=== PATIENT | female | born 1955 | race Caucasian/White ===

== ENCOUNTER → 2018-01-04 08:21 | Outpatient (CLI) | payer OTHER, SELFPAY ==
[2018-01-04 10:25] LABS: AST(SGOT) 18 U/L (15-37); Alanine Aminotransfer ALT/SGPT 29 U/L (13-56); Albumin, Serum 3.9 g/dL (3.2-5.0); Alkaline Phosphatase 82 U/L (45-117); Bilirubin, Direct 0.16 mg/dL (0.00-0.30); Cholesterol 222 mg/dL (200); Globulin 3.8 g/dL (2.2-4.2); High Density Lipoprotein 62 mg/dL; Protein, Total 7.7 g/dL (6.4-8.2); Triglycerides 112 mg/dL; Very Low Density Lipoprotein 22 mg/dL (5-40)
== END ==
PROVIDERS: Family Provider Family Medicine; PCP Family Medicine; Visit Provider Family Medicine
DX: E78.5 Hyperlipidemia, unspecified (principal)
CPT/HCPCS: 36415; 80061; 80076

== ENCOUNTER → 2018-06-23 07:03 | Outpatient (CLI) | payer OTHER, SELFPAY ==
[2018-06-23 10:34] LABS: Vitamin D,25 Hydroxy 31.7 ng/mL (29.95-100.01)
[2018-06-23 10:36] LABS: Anion Gap 7 (5-15); BUN 13 mg/dL (7-18); Chloride 104 mmol/L (98-107); Creatinine, Serum 0.81 mg/dL (0.55-1.02); EST Glomerular Filtration Rate 76 mL/min (>60); Est Glom Filt Rate - Afr Amer 92 mL/min (>60); Glucose 81 mg/dL (74-106); Potassium 4.4 mmol/L (3.5-5.1); Sodium Level 139 mmol/L (136-145); Thyroid Stim Hormone (TSH) 2.28 uIU/mL (0.358-3.74)
[2018-06-27 18:09] LABS: AST(SGOT) 17 U/L (15-37); Alanine Aminotransfer ALT/SGPT 23 U/L (13-56); Albumin, Serum 4.1 g/dL (3.2-5.0); Alkaline Phosphatase 75 U/L (45-117); Bilirubin, Direct 0.13 mg/dL (0.00-0.30); Cholesterol 248 mg/dL (200); Globulin 3.5 g/dL (2.2-4.2); High Density Lipoprotein 60 mg/dL; Protein, Total 7.6 g/dL (6.4-8.2); Triglycerides 91 mg/dL; Very Low Density Lipoprotein 18 mg/dL (5-40)
== END ==
PROVIDERS: Family Provider Family Medicine; PCP Family Medicine; Referring Provider Family Medicine; Visit Provider Family Medicine
DX: Z00.00 Encounter for general adult medical examination without abnormal findings (principal); Z13.21 Encounter for screening for nutritional disorder
CPT/HCPCS: 36415; 80048; 80061; 80076; 82306; 84443

== ENCOUNTER 2018-08-04 10:00 | Outpatient (RCR) | payer SELFPAY ==
--- NOTE | 2018-12-25 08:28 | HP.PT.NRP ---
HP - Discharge Summary (1) - Patient Information IDA COLUNGA was seen in my office for initial evaluation on . The following Plan of Care was established for this patient: This patient was last seen in our office . 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 At this point I will be discontinuing this patient from physical therapy. I would be happy to see this patient again in the future if found appropriate by the physician. Thank you! Liliana Norton, UNAT
== END 2018-08-04 19:00 | disposition home or self-care (01) ==
LOC: PT 10:00
PROVIDERS: Family Provider Family Medicine; PCP Family Medicine
DX: R69 Illness, unspecified (principal)

== ENCOUNTER → 2019-07-11 09:04 | Outpatient (CLI) | payer OTHER, SELFPAY ==
[2019-07-11 10:24] LABS: Anion Gap 5 (5-15); BUN 18 mg/dL (7-18); BUN/Creat Ratio 19.3 RATIO (10-20); Calcium,Total 9.6 mg/dL (8.5-10.1); Chloride 103 mmol/L (98-107); Cholesterol 243 mg/dL (200); Creatinine, Serum 0.93 mg/dL (0.55-1.02); EST Glomerular Filtration Rate 64 mL/min (>60); Est Glom Filt Rate - Afr Amer 78 mL/min (>60); Glucose 102 mg/dL (74-106); High Density Lipoprotein 64 mg/dL; Potassium 4.4 mmol/L (3.5-5.1); Sodium Level 138 mmol/L (136-145); Thyroid Stim Hormone (TSH) 2.17 uIU/mL (0.358-3.74); Triglycerides 84 mg/dL; Very Low Density Lipoprotein 17 mg/dL (5-40)
[2019-07-11 10:41] LABS: Vitamin D,25 Hydroxy 35.6 ng/mL (29.95-100.01)
== END ==
PROVIDERS: PCP Family Medicine; Referring Provider Nurse Practitioner Adult Health; Visit Provider Nurse Practitioner Adult Health
DX: I10 Essential (primary) hypertension (principal); E78.5 Hyperlipidemia, unspecified
CPT/HCPCS: 36415; 80048; 80061; 82306; 84443

== ENCOUNTER 2019-07-12 11:30 | Outpatient (RCR) | payer SELFPAY ==
--- NOTE | 2019-10-23 11:36 | HP.PT.NRP ---
IDA COLUNGA was seen in my office for initial evaluation on . The following Plan of Care was established for this patient: This patient was last seen in our office . Pertinent comments regarding their Physical therapy will appear below: Self Pay DN- dc At this point I will be discontinuing this patient from physical therapy. I would be happy to see this patient again in the future if found appropriate by the physician. Thank you! UNA HensleyT
== END 2019-07-12 19:00 | disposition home or self-care (01) ==
LOC: PT 11:30
PROVIDERS: Family Provider Family Medicine; PCP Family Medicine
DX: R69 Illness, unspecified (principal)

== ENCOUNTER → 2020-10-07 07:07 | Outpatient (CLI) | payer OTHER, SELFPAY ==
[2020-10-07 10:30] LABS: Vitamin D,25 Hydroxy 27.7 ng/mL
[2020-10-07 10:40] LABS: Anion Gap 4 (5-15); BUN 17 mg/dL (7-18); BUN/Creat Ratio 21.9 RATIO (10-20); Calcium,Total 9.2 mg/dL (8.5-10.1); Chloride 103 mmol/L (98-107); Cholesterol 272 mg/dL (200); Creatinine, Serum 0.78 mg/dL (0.55-1.02); EST Glomerular Filtration Rate 79 mL/min (>60); Est Glom Filt Rate - Afr Amer 96 mL/min (>60); Glucose 86 mg/dL (74-106); High Density Lipoprotein 71 mg/dL; Sodium Level 138 mmol/L (136-145); Thyroid Stim Hormone (TSH) 2.91 uIU/mL (0.358-3.74); Triglycerides 99 mg/dL; Very Low Density Lipoprotein 20 mg/dL (5-40)
== END ==
PROVIDERS: PCP Family Medicine; Referring Provider Family Medicine; Visit Provider Family Medicine
DX: I10 Essential (primary) hypertension (principal); R63.5 Abnormal weight gain; Z13.21 Encounter for screening for nutritional disorder
CPT/HCPCS: 36415; 80048; 80061; 82306; 84443

== ENCOUNTER → 2021-03-31 07:14 | Outpatient (CLI) | payer OTHER, SELFPAY ==
[2021-03-31 10:15] LABS: AST(SGOT) 14 U/L (15-37); Alanine Aminotransfer ALT/SGPT 21 U/L (13-56); Cholesterol 247 mg/dL (200); High Density Lipoprotein 66 mg/dL; Triglycerides 109 mg/dL; Very Low Density Lipoprotein 22 mg/dL (5-40)
== END ==
PROVIDERS: PCP Family Medicine; Referring Provider Family Medicine; Visit Provider Family Medicine
DX: R79.89 Other specified abnormal findings of blood chemistry (principal)
CPT/HCPCS: 36415; 80061; 84450; 84460

== ENCOUNTER → 2022-06-10 | Outpatient (CLI) | payer MEDICARE, OTHER, SELFPAY ==
[2022-06-10 10:13] LABS: Absolute Lymphocyte Count 2.59 X10^3/uL (0.83-4.51); Absolute Neutrophil Count 4.1 X10^3/uL (2.0-7.7); Basophil# 0.05 X10^3/uL; Basophil% 0.7 % (0-1); Eosinophils% 1.3 % (0-5); Hematocrit 44.3 % (37-47); Hemoglobin 14.8 g/dL (12.0-15.0); Lymphocyte # 2.59 X10^3/ul (0.83-4.51); Lymphocyte % 34.9 % (19-41); Mean Corp Hgb Conc 33.4 g/dL (32-36); Mean Corpuscular Volume 89.9 fL (81-99); Mean Platelet Vol. 11.5 fl (6.2-12.0); Monocyte% 8.1 % (0-10); NRBC Flagged by Analyzer 0 % (0-5); Neutrophil # 4.07 X10^3/uL (2.7-7.7); Neutrophil % 54.7 % (47-70); Platelet Count 186 K/mm3 (150-450); RBC Distribution Width CV 12.7 % (11.6-14.6); RBC Distribution Width SD 41.5 fl (35.1-43.9); Red Blood Count 4.93 M/mm3 (4.2-5.4); White Blood Count 7.4 K/mm3 (4.4-11.0)
[2022-06-10 10:38] LABS: Anion Gap 5 (5-15); BUN 11 mg/dL (7-18); BUN/Creat Ratio 13.6 RATIO (10-20); Calcium,Total 9.3 mg/dL (8.5-10.1); Chloride 105 mmol/L (98-107); Cholesterol 284 mg/dL (200); Creatinine, Serum 0.81 mg/dL (0.55-1.02); EST Glomerular Filtration Rate 76 mL/min (>60); Est Glom Filt Rate - Afr Amer 91 mL/min (>60); Glucose 104 mg/dL (74-106); High Density Lipoprotein 67 mg/dL; Potassium 4.2 mmol/L (3.5-5.1); Sodium Level 139 mmol/L (136-145); Thyroid Stim Hormone (TSH) 1.93 uIU/mL (0.358-3.74); Triglycerides 153 mg/dL; Very Low Density Lipoprotein 31 mg/dL (5-40)
== END | disposition home or self-care (01) ==
PROVIDERS: PCP Family Medicine; Referring Provider Family Medicine; Visit Provider Family Medicine
DX: I10 Essential (primary) hypertension (principal); R63.5 Abnormal weight gain; R79.89 Other specified abnormal findings of blood chemistry
CPT/HCPCS: 36415; 80048; 80061; 82306; 84443; 85025

== ENCOUNTER 2024-01-10 16:05 | Outpatient (CLI) | payer MEDICARE, OTHER, SELFPAY ==
[2024-01-10 17:59] LABS: Vitamin D,25 Hydroxy 47.8 ng/mL
[2024-01-10 18:07] LABS: Anion Gap 9 (5-15); BUN 16 mg/dL (7-18); BUN/Creat Ratio 21.1 RATIO (10-20); Calcium,Total 9.6 mg/dL (8.5-10.1); Chloride 103 mmol/L (98-107); Cholesterol 271 mg/dL (200); Creatinine, Serum 0.76 mg/dL (0.55-1.02); EST Glomerular Filtration Rate 81 mL/min (>60); Est Glom Filt Rate - Afr Amer 97 mL/min (>60); Glucose 96 mg/dL (74-106); High Density Lipoprotein 64 mg/dL; Potassium 4.1 mmol/L (3.5-5.1); Sodium Level 137 mmol/L (136-145); Triglycerides 104 mg/dL; Very Low Density Lipoprotein 21 mg/dL (5-40)
== END 2024-01-10 23:59 | disposition home or self-care (01) ==
LOC: MTLAB 16:06
PROVIDERS: PCP Family Medicine; Referring Provider Family Medicine; Visit Provider Family Medicine
DX: I10 Essential (primary) hypertension (principal); E78.5 Hyperlipidemia, unspecified; R79.89 Other specified abnormal findings of blood chemistry; E55.9 Vitamin D deficiency, unspecified
CPT/HCPCS: 36415; 80048; 80061; 82306

== ENCOUNTER → 2025-01-15 | Outpatient (CLI) | payer MEDICARE, OTHER, SELFPAY ==
[2025-01-15 15:59] LABS: AST(SGOT) 19 U/L (<=31); Alanine Aminotransfer ALT/SGPT 17 U/L (<=34); Albumin, Serum 4.6 g/dL (3.4-4.8); Alkaline Phosphatase 81 U/L (35-104); Anion Gap 12 (5-15); BUN 14 mg/dL (4-19); BUN/Creat Ratio 17.8 RATIO (10-20); Calcium,Total 10.1 mg/dL (7.6-11.0); Carbon Dioxide 25.7 mmol/L (21.0-32.0); Chloride 102 mmol/L (98-108); Cholesterol 263 mg/dL (<=200); Globulin 3.3 g/dL (2.2-4.2); Glucose 99 mg/dL (70-99); Low Density Lipoprotein Calc. 164 mg/dL; Potassium 4.4 mmol/L (3.3-5.1); Triglycerides 104 mg/dL; Very Low Density Lipoprotein 21 mg/dL (5-40); cholesterol:hdl ratio screen 3.35
[2025-01-15 16:11] LABS: Hematocrit 46.4 % (37-47); Hemoglobin 15.0 g/dL (12.0-15.0); Immature Granulocytes Count 0.090 X10^3/uL (0.0-0.0); Mean Corp Hgb Conc 32.3 g/dL (32-36); Mean Corpuscular Volume 89.4 fL (81-99); Mean Platelet Vol. 11.8 fl (6.2-12.0); NRBC Flagged by Analyzer 0 % (0-5); Platelet Count 202 K/mm3 (150-450); RBC Distribution Width CV 13.0 % (11.6-14.6); RBC Distribution Width SD 42.5 fl (35.1-43.9); Red Blood Count 5.19 M/mm3 (4.2-5.4); White Blood Count 8.8 K/mm3 (4.4-11.0)
--- OUTSIDE RECORDS SUMMARY | 2025-01-15 18:54 | XMS RPT_ITS | CCD ---
Author Organization [facility] Care Team Providers Care Train Announcer Name Role Phone JOLLIFF, CLAUDINE S Primary Care Unavailable JOLLIFF, CLAUDINE S Primary Care Unavailable MAME DO-FACOG, DAIANA Worthington Attending Unavail able JOLLIFF, CLAUDINE S Primary Care Unavailable Jolliff, Claudine Ольга Primary Care Provider [phone] Jolliff, Claudine S Referring Unavailable Jolliff, Claudine S Attending Unavailable Jolliff, Claudine S Primary Care Unavailable Jolliff, Claudine Ольга Primary Care Provider [phone] JOLLIFF, CLAUDINE S Primary Care Unavailable JOLLIFF, CLAUDINE S Primary Care Unavailable MAME DO-FACOG, DAIANA Worthington Attending Unavail able MAME DO-FACOGDAIANA Attending Unavail able JOLLIFF, CLAUDINE S Primary Care Unavailable JOLLIFF, CLAUDINE S Primary Care Unavailable JOLLIFF, CLAUDINE S Primary Care Unavailable JOLLIFF, CLAUDINE ОЛЬГА Primary Care Unavailable PROVIDER, UNKNOWN Referring Unavailable Problems Problem Classification Problem Date Documented Da te Episodic/Chronic Essential hypertension (1 source) Essential (primary) hypertension; Translations: [Essential (primary) hypertension] Onset: 02-23-2024 Chronic Other screening for suspected conditions (not mental disorders or infectious disease) (1 source) Encounter for screening mammogram for malignant neoplasm of breast; Translations: [Encounter for screening mammogram for malignant neoplasm of breast] Onset: 06-29-2024 Episodic Results Test Name Value Interpretation Reference Range Facil ity WILLIAM SCREENING W TOMOon 06-29 WILLIAM SCREENING W ROBERT * * *Final Report* * * DATE OF EXAM: Jun 29 2024 9:42AM ESPINOZA 0582 - WILLIAM SCREENING W ROBERT / PROCEDURE REASON: Z12.31 SCREENING MAMMOGRAM * * * * Physician Interpretation * * * * [address] [address] #[id number] - WILLIAM SCREENING W ROBERT HISTORY: Patient is 69 years old and is seen for screening. No current complaints. Patient states no personal history of breast cancer. Patient states no personal history of other cancers. COMPARISON STUDIES: The present examination has been compared to prior imaging studies dated 04/19/2017 (mammogram), 06/23/2018 (mammogram), 10/31/2019 (mammogram), 04/22/2021 (mammogram) and 10/22/2022 (mammogram). MAMMOGRAM TECHNIQUE: The study was acquired using full field digital technology and interpreted from soft copy. Digital Breast Tomosynthesis (DBT) images were obtained and used to assist in the interpretation of this examination. MAMMOGRAM FINDINGS: The breasts are heterogeneously dense, which may obscure small masses. There are stable post-operative changes in the left breast. No suspicious masses, calcifications or other abnormalities are seen in either breast. There has been no significant interval change. IMPRESSION: Routine screening mammogram is recommended. Annual mammogram will be due in 1 year. BI-RADS Category 2: Benign RISK: Based on the Tyrer-Cuzick (TC) risk assessment model, this patient has a 4.9% lifetime risk of developing breast cancer, meaning they are at average risk for developing breast cancer. However, this is only an estimate based on available history provided on the patient's questionnaire. We encourage all patients to talk with their providers about these results, further recommendations for managing breast health, and appropriate supplemental screening options if the patient has dense breast tissue. Interpreting Radiologist: Jose Armando Boudreaux M.D. Electronically signed on: 07/01/2024 Improvement Intern: NELSY Turnerribe Date/Time: Jun 29 2024 9:26A Dictated by : JOSE ARMANDO BOUDREAUX MD This examination was interpreted and the report reviewed and electronically signed by: JOSE ARMANDO BOUDREAUX MD on Jul 01 2024 3:30PM EST [id number] N [facility] Phone Msgochristie 05-25-2024 Phone Msg - From: Rebecca Farr MA ([facility]) To: Rebecca Farr MA; Sent: 05/25/2024 09:34:35 EST Subject: FW: Daiana MyersDO tona --- [facility] SHUTTLE FINAL INSPECTOR: Appointment Cancellation Request Actions: Message Caller Name: BRIANNA COLUNGA; Caller Number: H From: BRIANNA COLUNGA To: Daiana Vilchis DO --- Women?[facility] SHUTTLE FINAL INSPECTOR ([facility]) Sent: 05/24/2024 05:26 p.m. EST Subject: Appointment Cancellation Request Thank you for your message. It has been successfully sent to the appropriate care team. The following patient is requesting an appointment to be cancelled. Patient Name: BRIANNA COLUNGA Patient : 1955 Contact Patient by: Secure Message Provider: Daiana Vilchis DO Appointment Date: 05/29/2024 11:30 a.m. EST Reason for Cancellation: I messaged with Dr. Vilchis around the time this appointment was made, and no longer feel that I need to be seen. Thank you! APPT IS CANCELLED [facility] Phone Msg - From: Rebecca Farr MA ([facility]) To: Rebecca Farr MA; Sent: 05/25/2024 09:33:53 EST Subject: FW: Daiana DO Mame --- [facility] SHUTTLE FINAL INSPECTOR: Appointment Cancellation Request Caller Name: BRIANNA COLUNGA; Caller Number: H From: BRIANNA COLUNGA To: Daiana Vilchis DO --- Women?[facility] SHUTTLE FINAL INSPECTOR ([facility]) Sent: 05/24/2024 05:27 p.m. EST Subject: Appointment Cancellation Request Thank you for your message. It has been successfully sent to the appropriate care team. The following patient is requesting an appointment to be cancelled. Patient Name: BRIANNA COLUNGA Patient : 1955 Contact Patient by: Secure Message Provider: Daiana Vilchis DO Appointment Date: 05/29/2024 11:30 a.m. EST Reason for Cancellation: I messaged with Dr. Vilchis around the time this appointment was made, and no longer feel that I need to be seen. Thank you! APPT IS CANCELLED [facility] Phone Msgon 04-27-2024 Phone Msg - From: Tammie Richardson ([facility]) To: BRIANNA COLUNGA Sent: 04/27/2024 13:50:40 EST Subject: RE: Daiana Vilchis DO --- [facility] SHUTTLE FINAL INSPECTOR: Vaginal dryness Actions: Message Mitchell Reed, Just follow the directions on the packaging for the Replens, and I would recommend applying it in the evening as it can work while you are sleeping and be less waste. if using in the morning you may need a pad as it will run out. each application is good for 3 days. I would not have intercourse on the 1st day of application, every one is different as far as response time for the medication to work. you can wait a week and then see how you do. if you have painful intercourse add the coconut oil to help. From: BRIANNA COLUNGA To: Daiana Vilchis DO --- [facility] SHUTTLE FINAL INSPECTOR ([facility]) Sent: 04/27/2024 10:15 a.m. EST successfully sent to the appropriate care team. At my appointment at the end of January you had recommended Replens and explained how you wanted to me use it. Unfortunately, and I am embarrassed to say, due to traveling, I did not start with it until recently:( The packaging states every 3 days; however, I?m not sure that was how you instructed me to use it in the beginning. Is it more beneficial to apply at night? Also, you talked about coconut oil for lubrication. How long after starting with Replens do you recommend would be comfortable to have sex and not experience any adverse problems. I appreciate your understanding and guidance! [facility] Phone Mustapha 04-24-2024 Phone Msg - From: Chikis Pereira To: DAIANA VIGIL; Sent: 04/24/2024 14:37:53 EST Subject: VAGINAL DRYNESS Caller Name: BRIANNA COLUNGA; Caller Number: H PATIENT CALLED IN HAVING A FEW QUESTIONS ABOUT VAGINAL DRYNESS. SHE WAS SEEN IN 02/08/24 FOR HER ANNUAL AND YOU DISCUSSED THIS WITH HER , SHE ALSO THOUGHT YOU DID A PAP WHEN SHE WAS SEEN I DID LOOK AND TALKED TO LEX AND SHE STATED YOU DIDNT BECAUSE BACK IN 2019 IT WAS NEGATIVE AND SHE JUST WANTED TO DOUBLE CHECK. I DID SCHEDULE HER AN APPT WITH DR VILCHIS ON 05/29/24 TO DISCUSS THIS BUT SHE WAS HOPING TO HEAR FROM YOU SOONER. BEST CONTACT NUMBER IS [phone] THANK YOU RH [facility] Physician Progress No wendy 02-12-2024 [facility] Physician Progress Note BRIANNA COLUNGA :1955 Registration Date:02/08/2024 Assessment/Plan This Visit Diagnosis 1. Well woman exam Z01.419 Ordered: AMB Medicare Screening Pelvic/Breast Exam G0101, 02/08/2024 18:28:00 EDT, Well woman exam / Screening mammogram, encounter for / Vaginal dryness, 1 2. Screening mammogram, encounter for Z12.31 Ordered: AMB Medicare Screening Pelvic/Breast Exam G0101, 02/08/2024 18:28:00 EDT, Well woman exam / Screening mammogram, encounter for / Vaginal dryness, 1 3. Vaginal dryness N89.8 Ordered: AMB Medicare Screening Pelvic/Breast Exam G0101, 02/08/2024 18:28:00 EDT, Well woman exam / Screening mammogram, encounter for / Vaginal dryness, 1 Medication Reconciliation What How Much When Instructions Unchanged albuterol = Proventil, Ventolin (Albuterol (Eqv-ProAir HFA)) Inhalation EVERY SIX HOURS Unchanged montelukast Oral DAILY Chief Complaint Annual, Mammogram-normal 10/22/22- needs order 02/27/20 neg pap and neg hpv 04/22/2021 Osteopenia on Dexa History of Present Illness Annual mammo due normal pap 2019 5 grandchildren- [place]iana and laura due for dexa she said pcp ordered menopause no bleeding pain intercourse- replens discussed lubrication reviewed and moisture discussed inclusion cysts medicare every 2 years Physical Exam Vitals & Measurements BP: 140/80 HT: 165 cm WT: 68 kg BMI: 24.98 Depression Screening Scores Initial Depression Screen Score: 0 (02/08/24 14:25:00) Fall Risk Assessment Is the patient ambulatory (mobile): Yes (02/08/24 14:25:00) Have you had a fall within the past: No (02/08/24 14:25:00) Have you had 2 or more falls in the past: No (02/08/24 14:25:00) Constitutional: Appears appropriate for age, non-toxic, and comfortable. No signs of apparent distress present. Speech is clear and appropriate. Stand comfortably erect. Patient is cooperative. VSS and reviewed Eyes: Full range of extra-ocular motion. Conjunctivae clear. Neck: supple and no thyromegaly Respiratory: Chest expansion is adequate bilaterally. Abdomen: Soft and Non-tender, Non distended Musculoskeletal: Walks with a normal gait. Motor strength is intact Ext: No C/C/E Skin: Warm and dry with no evidence of unusual rashes or suspicious lesions. Neurological: Alert and oriented x 3. Mood is normal. Extremities: No clubbing, Cyanosis or edema NUB CARD TENDER EXAM: Breast exam: normal bilateral breast tissue, no skin changes no masses and no nipple discharge, no LAD Pelvic Exam: Ext Gen: normal Vulva anatomy no rash Perineum: no lesions and intact Vagina: no cystocele or rectocele vaginal mucosa healthy pink Cervix: no CMT, discharge present normal Bladder: non tender on palpation Uterus: normal size and mobile midline, NT adnexa: NT and no masses Pelvic muscles: normal muscle tauntness/support OB History History (3,0,0,3) # 1 Baby 1 Outcome Date: 10/1987 Outcome or Result: Vaginal Gest Age: Fullterm Outcome: Live Sex: Female Wt: 2750 g Hospital: other # 2 Baby 1 Outcome Date: 12/1989 Outcome or Result: Vaginal Gest Age: Fullterm Outcome: Live Sex: Female Wt: 2892 g Hospital: other # 3 Baby 1 Outcome Date: 07/1991 Outcome or Result: Vaginal Gest Age: Fullterm Outcome: Live Sex: Female Wt: 2977 g Hospital: other Problem List/Past Medical History Ongoing Asthma HTN (hypertension) Osteopenia Historical Procedure/Surgical History Bone Density- osteopenia: 04/22/21 Mammogram-normal: 04/22/21 Last pap-neg w/neg HPV: 02/27/20 Colonoscopy-normal: 06/2018 D&C Polypectomy: 09/30/16: DAIANA VIGIL Fibroadenoma: 1989 Medications albuterol = Proventil, Ventolin(Albuterol (Eqv-ProAir HFA)), Inhalation, [id number] montelukast, ORAL, DAILY Allergies Trimox swelling of the tongue shellfish Social History Alcohol Use:Current Frequency:1-2 times per month Sexual Other contraceptive use:PM Substance Abuse - Denies Substance Abuse Tobacco Use:Never (less than 100 in lifetime) Family History Thyroid cancer: Mother. Health Status Family Member(s) Family Member(s) Relationship: Mother, Age: Unknown [facility] Ambulatory Clinical Summaryo n 02-08-2024 Ambulatory Clinical Summary BRIANNA COLUNGA :1955 Registration Date:02/08/2024 Ambulatory Visit Instructions Your Diagnosis Well woman exam Screening mammogram, encounter for Vaginal dryness Your Care Team Attending Physician - DAIANA VIGIL Primary Care Physician - CLAUDINE DAVEY Procedures Performed Mammogram-normal (04/22/2021) Bone Density- osteopenia (04/22/2021) Last pap-neg w/neg HPV (02/27/2020) Colonoscopy-normal (06/2018) D&C Polypectomy (09/30/2016) Fibroadenoma (1989) Discharge Vitals Blood Pressure 140/80 Height 64.96 in (165 cm) Weight 149.94 lb (68 kg) BMI 24.98 Systolic Blood Pressure: 140 mmHg (02/08/24::) Diastolic Blood Pressure: 80 mmHg (02/08/24::) Mean Arterial Pressure: 100 mmHg (02/08/24:) Height/Length Measured: 165 cm (02/08/24::) Weight Measured: 68 kg (02/08/24::) Body Mass Index Measured: 24.98 kg/m2 (02/08/24:) Weight Measured - lbs2: 149 lb (02/08/24::) Height/Length Measured - in2: 64.96 in (02/08/24:) Body Mass Index Measured English2: 24.82 kg/m2 (02/08/24::) BSA: 1.76 m2 (02/08/24::) Ht/Wt Measurement Refused by Patient?2: No (02/08/24:) What to do next Scheduled Follow-Up Appointments No results Medications What How Much When Instructions Unchanged albuterol = Proventil, Ventolin (Albuterol (Eqv-ProAir HFA)) Inhalation EVERY SIX HOURS Unchanged montelukast Oral DAILY Allergies Trimox swelling of the tongue shellfish Problems Ongoing - Any problem that you are currently receiving treatment for. Asthma HTN (hypertension) Osteopenia Common Emergency Awareness Tips IS IT A STROKE? Act FAST and Check for these signs: FACE Does the face look uneven? ARM Does one arm drift down? SPEECH Does their speech sound strange? TIME Call at any sign of stroke Heart Attack Signs Chest discomfort: Most heart attacks involve discomfort in the center of the chest and lasts more than a few minutes, or goes away and comes back. It can feel like uncomfortable pressure, squeezing, fullness or pain. Discomfort in upper body: Symptoms can include pain or discomfort in one or both arms, back, neck, jaw or stomach. Shortness of breath: With or without discomfort. Other signs: Breaking out in a cold sweat, nausea, or lightheaded. Remember, MINUTES DO MATTER. If you experience any of these heart attack warning signs, call 9-1-1 to get immediate medical attention! [facility] Ambulatory Clinical Summary BRIANNA COLUNGA DOB:1955 Registration Date:02/08/2024 Ambulatory Visit Instructions Your Diagnosis Well woman exam Screening mammogram, encounter for Vaginal dryness Your Care Team Attending Physician - DAIANA VIGIL Primary Care Physician - CLAUDINE DAVEY Procedures Performed Mammogram-normal (04/22/2021) Bone Density- osteopenia (04/22/2021) Last pap-neg w/neg HPV (02/27/2020) Colonoscopy-normal (06/2018) D&C Polypectomy (09/30/2016) Fibroadenoma (1989) Discharge Vitals Blood Pressure 140/80 Height 64.96 in (165 cm) Weight 149.94 lb (68 kg) BMI 24.98 Systolic Blood Pressure: 140 mmHg (02/08/24 14:25:00) Diastolic Blood Pressure: 80 mmHg (02/08/24 14:25:00) Mean Arterial Pressure: 100 mmHg (02/08/24 14:25:00) Height/Length Measured: 165 cm (02/08/24 14:25:00) Weight Measured: 68 kg (02/08/24 14:25:00) Body Mass Index Measured: 24.98 kg/m2 (02/08/24 14:25:00) Weight Measured - lbs2: 149 lb (02/08/24 14:25:00) Height/Length Measured - in2: 64.96 in (02/08/24 14:25:00) Body Mass Index Measured English2: 24.82 kg/m2 (02/08/24 14:25:00) BSA: 1.76 m2 (02/08/24 14:25:00) Ht/Wt Measurement Refused by Patient?2: No (02/08/24 14:25:00) What to do next Scheduled Follow-Up Appointments No results Medications What How Much When Instructions Unchanged albuterol = Proventil, Ventolin (Albuterol (Eqv-ProAir HFA)) Inhalation EVERY SIX HOURS Unchanged montelukast Oral DAILY Allergies Trimox swelling of the tongue shellfish Problems Ongoing - Any problem that you are currently receiving treatment for. Asthma HTN (hypertension) Osteopenia Common Emergency Awareness Tips IS IT A STROKE? Act FAST and Check for these signs: FACE Does the face look uneven? ARM Does one arm drift down? SPEECH Does their speech sound strange? TIME Call at any sign of stroke Heart Attack Signs Chest discomfort: Most heart attacks involve discomfort in the center of the chest and lasts more than a few minutes, or goes away and comes back. It can feel like uncomfortable pressure, squeezing, fullness or pain. Discomfort in upper body: Symptoms can include pain or discomfort in one or both arms, back, neck, jaw or stomach. Shortness of breath: With or without discomfort. Other signs: Breaking out in a cold sweat, nausea, or lightheaded. Remember, MINUTES DO MATTER. If you experience any of these heart attack warning signs, call to get immediate medical attention! [facility] Comprehensive Intake - Texto n 02-08-2024 Comprehensive Intake - Text Comprehensive Intake Entered On: 02/08/2024 14:30 EDT Performed On: 02/08/2024 14:25 EDT by Lex Huang MA Summary Chief Complaint : Annual, Mammogram-normal 10/22/22- needs order 02/27/20 neg pap and neg hpv 04/22/2021 Osteopenia on Dexa Lex Huang MA - 02/08/2024 14:30 EDT Bladder Control Issues? : No Urine Leakage? : No Presence or absence of urinary incontinence assessed : Yes CPT-II Medication list doc'd in medical record : Yes Influenza immunization administered or previously received : No Pneumococcal vaccine administered or previously received : No Lex Huang MA - 02/08/2024 14:25 EDT Measurements Weight Measured : 68 kg(Converted to: 149 lb 15 oz, 149.914 lb) Body Mass Index Measured : 24.98 kg/m2 Body Mass Index documented : Yes Weight Measured - lbs : 149 lb(Converted to: 149 lb 0 oz, 68 kg) Body Mass Index Measured Palestinian : 24.82 kg/m2 BSA Palestinian : 1.76 m2 Lex Huang MA 02/08/2024 14:30 EDT Ht/Wt Measurement Refused by Patient? : No Height/Length Measured : 165 cm(Converted to: 5 ft 5 in, 64.96 in) Height/Length Measured - in : 64.96 in(Converted to: 5 ft 5 in, 165 cm) Lex Huang MA 02/08/2024 14:25 EDT Vitals Require BP : Yes Systolic Blood Pressure : 140 mmHg Diastolic Blood Pressure : 80 mmHg Mean Arterial Pressure : 100 mmHg Last Systolic BP : greater than or equal to 140 mmHg Last Diastolic BP : 80-89 mmHg Pain Present : No actual or suspected pain Pain : 0 Pain severity quantified : No pain present Lex Huang MA 02/08/2024 14:34 EDT Infection Screening Travel outside [place] within past 21 days : No Positive COVID test in the last 10 days? : No Exposure to and/or close contact with a person who has a laboratory-confirmed COVID test within the last 48 hours. : No Reina NOELLE Lex 02/08/2024 14:25 EDT Depression Screening Is patient currently : None of the Below Feeling Down, Depressed, Hopeless : Not at all Little Interest - Pleasure in Activities : Not at all Initial Depression Screen Score : 0 Depression Screening Score 0 : No RobeclementinaLex luevano MA 02/08/2024 14:25 EDT Falls Risk Assessment Is the patient ambulatory (mobile) : Yes Have you had 2 or more falls in the past year : No Have you had a fall within the past year that has caused an injury : No Patient screen for fall risk : no falls in last year OR 1 fall with no injury in last year Roberoberto DRAKE Lex 02/08/2024 14:25 EDT [facility] Basic Metabolic Profile (BMP )on 01-10-2024 BUN/CRE 21.1 RATIO High 10-20 [facility] Comment on above: Order Comment: Order Date: 01/10/24 Order Info: [id number] - BMP Order Info: [id number] - LIPID Performed By: #### L 500.4100, L500.2500, L506.1000 #### [facility] [address] [place], [address] CA,Total 9.6 mg/dL Normal 8.5-10.1 [facility] Comment on above: Order Comment: Order Date: 01/10/24 Order Info: 06 - BMP Order Info: [id number] - LIPID Performed By: #### L 500.4100, L500.2500, L506.1000 #### [facility] [address] [place], [address] Chloride [Moles/Vol] 103 mmol/L Normal 98-107 [facility] Comment on above: Order Comment: Order Date: 01/10/24 Order Info: 666-06 - BMP Order Info: [id number] - LIPID Performed By: #### L 500.4100, L500.2500, L506.1000 #### [facility] [address] [place], [address] CO2 [Moles/Vol] 25.0 mmol/L Normal 21.0-32.0 [facility] Comment on above: Order Comment: Order Date: 01/10/24 Order Info: 666-06 - [facility] Order Info: [id number] - LIPID Performed By: #### L 500.4100, L500.2500, L506.1000 #### [facility] [address] [place], [address] Creatinine [Mass/Vol] 0.76 mg/dL Normal 0.55-1.02 [facility] Comment on above: Order Comment: Order Date: 01/10/24 Order Info: 666-06 - BMP Order Info: [id number] - LIPID Result Comment: The validity of the calculated GFR GFRAA in patients over 70 years has not been determined. Clinical correlation is essential. Performed By: #### L 500.4100, L500.2500, L506.1000 #### [facility] [address] [place], [address] EST GFR - AA 97 mL/min Normal >60 [facility] Comment on above: Order Comment: Order Date: 01/10/24 Order Info: 666-06 - BMP Order Info: [id number] - LIPID Result Comment: Afri can Togolese GFR Calc Performed By: #### L 500.4100, L500.2500, L506.1000 #### [facility] [address] [place], [address] GAP 9 Normal 5-15 [facility] Comment on above: Order Comment: Order Date: 01/10/24 Order Info: 06 - [facility] Order Info: [id number] - LIPID Performed By: #### L 500.4100, L500.2500, L506.1000 #### [facility] [address] [place], [address] GFR/1.73 sq M.predicted among non-blacks MDRD (S/P/Bld) [Vol rate/Area] 81 mL/min/{1.73_m2} Normal >60 [facility] Comment on above: Order Comment: Order Date: 01/10/24 Order Info: 666-06 - [facility] Order Info: [id number] - LIPID Result Comment: Non- GFR Calc Performed By: #### L 500.4100, L500.2500, L506.1000 #### [facility] [address] [place], [address] Glucose [Mass/Vol] 96 mg/dL Normal 74-106 [facility] Comment on above: Order Comment: Order Date: 01/10/24 Order Info: 666-06 - [facility] Order Info: [id number] - LIPID Performed By: #### L 500.4100, L500.2500, L506.1000 #### [facility] [address] [place], [address] Potassium [Moles/Vol] 4.1 mmol/L Normal 3.5-5.1 [facility] Comment on above: Order Comment: Order Date: 01/10/24 Order Info: [id number]- - [facility] Order Info: [id number] - LIPID Performed By: #### L 500.4100, L500.2500, L506.1000 #### [facility] [address] [place], [address] Sodium [Moles/Vol] 137 mmol/L Normal 136-145 [facility] Comment on above: Order Comment: Order Date: 01/10/24 Order Info: [id number] - BMP Order Info: [id number] - LIPID Performed By: #### L 500.4100, L500.2500, L506.1000 #### [facility] [address] [place], [address] Urea nitrogen [Mass/Vol] 16 mg/dL Normal 7-18 [facility] Comment on above: Order Comment: Order Date: 01/10/24 Order Info: [id number]- - BMP Order Info: [id number] - LIPID Performed By: #### L 500.4100, L500.2500, L506.1000 #### [facility] [address] [place], [address] Lipid Profileon 01-10-2024 Cholesterol [Mass/Vol] 271 mg/dL High 200 [facility] Comment on above: Order Comment: Order Date: 01/10/24 Order Info: [id number] - BMP Order Info: [id number] - LIPID Result Comment: <200 mg/dL Desirable 200-240 mg/dL Borderline >240 mg/dL High Risk Performed By: #### L 500.4100, L500.2500, L506.1000 #### [facility] [address] [place], [address] Cholesterol in HDL [Mass/Vol] 64 mg/dL Normal [facility] Comment on above: Order Comment: Order Date: 01/10/24 Order Info: [id number] - BMP Order Info: [id number] - LIPID Result Comment: The drugs N-Acetylcysteine and Metamizole may falsely depress this assay. Reference Range HDL <40 mg/dL Low HDL Cholesterol HDL >or= 60 mg/dL High HDL Cholesterol Performed By: #### L 500.4100, L500.2500, L506.1000 #### [facility] [address] [place], [address] Cholesterol in LDL [Mass/Vol] 186 mg/dL High 0-130 [facility] Comment on above: Order Comment: Order Date: 01/10/24 Order Info: [id number] - BMP Order Info: [id number] - LIPID Performed By: #### L 500.4100, L500.2500, L506.1000 #### [facility] [address] [place], [address] Cholesterol in VLDL [Mass/Vol] 21 mg/dL Normal 5-40 [facility] Comment on above: Order Comment: Order Date: 01/10/24 Order Info: [id number] - [facility] Order Info: [id number] - LIPID Performed By: #### L 500.4100, L500.2500, L506.1000 #### [facility] [address] [place], [address] Triglyceride [Mass/Vol] 104 mg/dL Normal [facility] Comment on above: Order Comment: Order Date: 01/10/24 Order Info: [id number] - [facility] Order Info: [id number] - LIPID Result Comment: The drugs N-Acetylcysteine and Metamizole may falsely depress this assay. Serum Triglycerides Reference Interval Normal <150 mg/dL Borderline high 150 - 199 mg/dL High 200 - 499 mg/dL Very High > or = 500 mg/dL Performed By: #### L 500.4100, L500.2500, L506.1000 #### [facility] [address] [place], [address] Protein+Creatinine Ratio,Uri neon 01-10-2024 PROT:CRE RATIO Normal 0-200 [facility] Comment on above: Result Comment: @UTO . PATIENT SAID THEY WOULD TALK TO LEE ABOUT DOING IT THE NEXT APPT Performed By: #### L 501.0900 #### [facility] [address] [place], [address] PROTEIN,UR.RAN. Normal <11.9 [facility] Comment on above: Result Comment: @UTO . PATIENT SAID THEY WOULD TALK TO LEE ABOUT DOING IT THE NEXT APPT Performed By: #### L 501.0900 #### [facility] [address] [place], [address] UR CREAT Normal NO RANGE EST. [facility] Comment on above: Result Comment: @UTO . PATIENT SAID THEY WOULD TALK TO LEE ABOUT DOING IT THE NEXT APPT Performed By: #### L 501.0900 #### [facility] [address], [address] Vitamin D,25 Hydroxyon 01-09 Vitamin D 25-OH 47.8 ng/mL Normal [facility] Comment on above: Order Comment: Order Date: 01/10/24 Order Info: [id number] - VITD25 Result Comment: Devorah min D 25(OH) Status Range Deficiency <20 ng/mL (50nmol/L) Insufficiency 20 - 30 ng/mL (50 - 75 nmol/L) Sufficiency 30 - 100 ng/mL (75 - 250 nmol/L) Toxicity >100 ng/mL (>250 nmol/L) Performed By: #### L 500.4100, L500.2500, L506.1000 #### [facility] [address] [place], [address] Phone Msgon 12-13-2023 Phone Msg - From: Miryam Mortensen To: Lex Huang MA; Sent: 12/13/2023 10:04:54 EDT Subject: MAMMOGRAM cooling pan tender Name: BRIANNA COLUNGA; Caller Number: h She needs a mammogram order sent to [facility]. If you can put it in and I will fax Submitted: Order:MAMM DIGITAL SCRN BILATERAL Details: 12/13/2023, Routine, SCREENING, Ambulatory, Screening mammogram, encounter for Signed by Lex Huang MA 12/13/2023 10:10:00 EDT From: Lex Huang MA To: Miryam Mortensen; Sent: 12/13/2023 10:12:44 EDT Subject: FW: MAMMOGRAM cooling pan tender Name: BRIANNA COLUNGA; Caller Number: H can you fax it to [facility] From: Miryam Mortensen To: Lex Huang MA; Sent: 12/13/2023 10:36:05 EDT Subject: RE: MAMMOGRAM cooling pan tender Name: BRIANNA COLUNGA; Caller Number: h FAXED TO [facility] Absolute lymphocyte counton 06-10-2022 Lymphocytes Auto (Unsp spec) [#/Vol] 2.59 10*3/uL 0.83-4.51 [facility] Work Phone: Basophil percentageon 2021 Basophils/100 WBC (Bld) 0.7 % 0-1 [facility] Work Phone: Chloride [Moles/Vol] 105 mmol/L 98-107 [facility] Work Phone: Cholesterol [Mass/Vol] 284 mg/dL <200 [facility] Work Phone: Comment on above: <200 mg/dL Desirable 200-240 mg/dL Borderline >240 mg/dL High Risk Eosinophils/100 WBC (Bld) 1.3 % 0-5 [facility] Work Phone: Glucose [Mass/Vol] 104 mg/dL 74-106 [facility] Work Phone: Comment on above: Fasting Glucose resu lt from 100 to 125 mg/dL suggests IMPAIRED HOMEOSTASIS per A.D.A. criteria. Neutrophils (Bld) [#/Vol] 4.1 10*3/uL 2.0-7.7 [facility] Work Phone: Neutrophils/100 WBC (Bld) 54.7 % 47-70 [facility] Work Phone: Potassium [Moles/Vol] 4.2 mmol/L 3.5-5.1 [facility] Work Phone: Sodium [Moles/Vol] 139 mmol/L 136-145 [facility] Work Phone: Triglyceride [Mass/Vol] 153 mg/dL <199 [facility] Work Phone: Comment on above: The drugs N-Acetylcy steine and Metamizole may falsely depress this assay.Serum Triglycerides Reference Interval Normal <150 mg/dL Borderline high 150 - 199 mg/dL High 200 - 499 mg/dL Very High > or = 500 mg/dL WBC (Bld) [#/Vol] 7.4 10*3/uL 4.4-11.0 [facility] Work Phone: Blood erythrocytes count (nu mber/volume)on 06-10-2022 RBC (Bld) [#/Vol] 4.93 10*6/uL 4.2-5.4 [facility] Work Phone: Blood hemoglobin measurement (mass/volume)on 06-10-2022 Hemoglobin (Bld) [Mass/Vol] 14.8 g/dL 12.0-15.0 [facility] Work Phone: Blood lymphocytes/100 leukoc yteson 06-10-2022 Lymphocytes/100 WBC (Bld) 34.9 % 19-41 [facility] Work Phone: Blood monocytes/100 leukocyt eson 06-10-2022 Monocytes/100 WBC (Bld) 8.1 % 0-10 [facility] Work Phone: Blood platelet mean volumeon 06-10-2022 Platelet mean volume (Bld) [Entitic vol] 11.5 fL 6.2-12.0 [facility] Work Phone: Determination of erythrocyte mean corpuscular volume (MCV)on 06-10-2022 MCV (RBC) [Entitic vol] 89.9 fL 81-99 [facility] Work Phone: Hematocrit Auto (Bld) [Volum e fraction]on 06-10-2022 Hematocrit (Bld) [Volume fraction] 44.3 % 37-47 [facility] Work Phone: Laboratory - Chemistry and C hemistry - challengeon 06-10-2022 CO2 [Moles/Vol] 29.0 mmol/L 21.0-32.0 [facility] Work Phone: Urea nitrogen/Creatinine [Mass ratio] 13.6 mg/mg 10-20 [facility] Work Phone: Laboratory - Hematology and Cell countson 06-10-2022 Erythrocyte distribution width (RBC) [Entitic vol] 41.5 fL 35.1-43.9 [facility] Work Phone: Erythrocyte distribution width (RBC) [Ratio] 12.7 % 11.6-14.6 [facility] Work Phone: Immature granulocytes/100 WBC (Bld) 0.300 % 0.0-0.9 [facility] Work Phone: Comment on above: IG% - Immature Granu locytes (promyelocytes, myelocytes and metamyelocytes) > 1% indicates that a LEFT SHIFT is Present. MCH (RBC) [Entitic mass] 30.0 pg 27.0-32.0 [facility] Work Phone: Nucleated RBC/100 WBC (Bld) [Ratio] 0 % 0-5 [facility] Work Phone: MCHC Auto (RBC) [Mass/Vol]on 06-10-2022 MCHC (RBC) [Mass/Vol] 33.4 g/dL 32-36 [facility] Work Phone: No Panel Informationon 06-10 Estimated GFR (MDRD) Amer 91 mL/min >60 [facility] Work Phone: Comment on above: GFR Calc Estimated GFR (MDRD) Non-Af Amer 76 mL/min >60 [facility] Work Phone: Comment on above: Non- GFR Calc Thyroid Stimulating Hormone (TSH) 1.93 uIU/mL 0.358-3.74 [facility] Work Phone: Vitamin D 25-Hydroxy 46.0 ng/mL [facility] Work Phone: Comment on above: Vitamin D 25(OH) Sta tus Range Deficiency <20 ng/mL (50nmol/L) Insufficiency 20 - 30 ng/mL (50 - 75 nmol/L) Sufficiency 30 - 100 ng/mL (75 - 250 nmol/L) Toxicity >100 ng/mL (>250 nmol/L) Platelets bldon 06-10-2022 Platelets (Bld) [#/Vol] 186 10*3/uL 150-450 [facility] Work Phone: Serum or plasma calcium danielito urement (mass/volume)on 06-10-2022 Calcium [Mass/Vol] 9.3 mg/dL 8.5-10.1 [facility] Work Phone: Serum or plasma cholesterol in HDL measurement (mass/volume)on 06-10-2022 Cholesterol in HDL [Mass/Vol] 67 mg/dL >40 [facility] Work Phone: Comment on above: The drugs N-Acetylcy steine and Metamizole may falsely depress this assay. Reference Range HDL <40 mg/dL Low HDL Cholesterol HDL >or= 60 mg/dL High HDL Cholesterol Serum or plasma cholesterol in VLDL measurement (mass/volume)on 06-10-2022 Cholesterol in VLDL [Mass/Vol] 31 mg/dL 5-40 [facility] Work Phone: Serum or plasma creatinine m easurement (mass/volume)on 06-10-2022 Creatinine [Mass/Vol] 0.81 mg/dL 0.55-1.02 [facility] Work Phone: Comment on above: The validity of the calculated GFR & GFRAA in patients over 70 years has not been determined. Clinical correlation is essential. Serum or plasma low density lipoprotein (LDL) cholesterol measurement (mass/volume)on 06-10-2022 Cholesterol in LDL [Mass/Vol] 186 mg/dL 0-130 [facility] Work Phone: Serum or plasma urea nitroge n measurement (mass/volume)on 06-10-2022 Urea nitrogen [Mass/Vol] 11 mg/dL 7-18 [facility] Work Phone: Thin prep Papanicolaou smear with manual screeningon 06-10-2022 Thin prep Papanicolaou smear with manual screening 5 5-15 [facility] Work Phone: CNCOon 04-22-2021 [facility] HNO ID: [id number] Author: Mammography Coordinator Service: ? Author Type: Physician Type: Letter Filed: 04/23/2021 11:34 PM Note Text: April 22, 2021 PID: [id number] Brianna Colunga [address] [place] [address] Dear Ms. Colunga, We are pleased to inform you that the results of your recent breast imaging exam on 04/22/2021 are normal. Your mammogram demonstrates that you have dense breast tissue, which could hide abnormalities. Dense breast tissue, in and of itself, is a relatively common condition. Therefore, this information is not provided to cause undue concern; rather, it is to raise your awareness and promote discussion with your health care provider regarding the presence of dense breast tissue in addition to other risk factors. Early detection of cancer is very important. We also understand recommendations regarding breast cancer screening are controversial. Please discuss with your primary care provider which strategy is best for you and whether a mammogram is right for you. Your imaging studies and report will be kept on file at [facility] as part of your permanent medical record and are available for your continuing care. Thank you for allowing us to help in meeting your health care needs. Sincerely, Dr. Recio Interpreting Radiologist [facility] (Normal over 40) Normal [facility] Encounters Encounter Date Encounter Type Care Provider Facility Start: 06-29-2024 ambulatory CLAUDINE grant:[facility] Start: 06-29-2024 End: 06-29-2024 Subsequent hospital visit by physician Screen/Diagnostic Mammo [facility] Work Phone: Mammography Comment on above: Encounter for screen ing mammogram for malignant neoplasm of breast [Z12.31] Start: 06-28-2024 End: 06-28-2024 ambulatory CLAUDINE DAVEY [facility] Start: 05-25-2024 ambulatory CLAUDINE DAVEY Facility: [facility] Start: 04-27-2024 ambulatory CLAUDINE DAVEY Facility: [facility] Start: 02-08-2024 End: 02-08-2024 [facility] Start: 01-10-2024 End: 01-10-2024 ambulatory Claudine Davey Facility:[facility] Start: 10-22-2022 End: 10-22-2022 Subsequent hospital visit by physician Screen/Diagnostic Mammo [facility] Work Phone: Mammography Start: 10-13-2022 ambulatory CLAUDINE DAVEY Facility: [facility] Start: 06-10-2022 End: 06-10-2022 ambulatory [facility] Work Phone: Start: 06-10-2022 End: 06-10-2022 Patient encounter procedure [facility] Start: 01-04-2022 ambulatory CLAUDINE DAVEY Facility: [facility] Start: 11-05-2021 End: 11-06-2021 [facility] [place] Procedures Date Procedure Procedure Detail Performing Clinician Start: 04-22-2021 Mammography [facility] Work Phone: Plan of Treatment Date Care Activity Detail Author Start: 2031 RSV Vaccine (1 - 1-d ose 75+ series) RSV Vaccine (1 - 1-dose 75+ series) [facility] Start: 06-13-2024 Advance Directive Discussion Advance Directive Discussion [facility] Start: 02-12-2024 Covid-19 Vaccine ( season) Covid-19 Vaccine ( season) [facility] Start: 02-12-2024 Influenza vaccination Influenza Vacc ine (#1) [facility] Start: 10-23-2023 Screening for malign ant neoplasm of breast Mammogram Screening [facility] Start: 02-11-2023 Influenza vaccination INFLUENZA (Sea son Ended) [facility] Start: 06-13-2022 ADVANCE DIRECTIVE DISCUSSION ADVANCE DIRECTIVE DISCUSSION [facility] Start: 06-13-2022 DEPRESSION ASSESSMENT DEPRESSION ASS ESSMENT [facility] Start: 04-22-2022 Mammography MAMMOGRAM [facility] Start: 06-21-2021 COVID-19 VACCINE (4 - Booster for Moderna series) COVID-19 VACCINE (4 - Booster for Moderna series) [facility] Start: 2021 PNEUMOCOCCAL: 65+ (1 - PCV) PNEUMOCOCCAL: 65+ (1 - PCV) [facility] Start: 08-04-2020 Shingrix Vaccine (2 of 2) Shingrix V accine (2 of 2) [facility] Start: 2006 Pneumococcal Vaccine : 50+ (1 of 1 - PCV) Pneumococcal Vaccine: 50+ (1 of 1 - PCV) [facility] Start: 2006 SHINGRIX VACCINE (1 of 2) SHINGRIX V ACCINE (1 of 2) [facility] Start: 2001 COLOGUARD (FIT-DNA) COLOGUARD (FIT-D NA) [facility] Start: 2001 Colonoscopy COLONOSCOPY [facility] Start: 2001 COLORECTAL CANCER SCREENING COLORECTAL CANCER SCREENING [facility] Start: [address] COLONOGRAPHY [facility] Start: 2001 DIABETES SCREEN DIABETES SCREEN [facility] Start: 2001 Diabetes Screening Diabetes Screenin g [facility] Start: 2001 FECAL OCCULT BLOOD FECAL OCCULT BLOO D [facility] Start: 2001 Lipid panel Lipid Screening [facility] Start: 2001 LIPID SCREEN LIPID SCREEN [facility] Start: 2001 Screening for malign ant neoplasm of colon [facility] Start: 2001 SIGMOIDOSCOPY SIGMOIDOSCOPY [facility] Start: 1975 Urine microalbumin profile [facility] Start: 1974 Anxiety Screening Anxiety Screening [facility] Start: 1974 Depression Screening Depression Scre ening [facility] Start: 1974 HEPATITIS C SCREENING HEPATITIS C [facility] Start: 1974 Hepatitis C screening Hepatitis C [facility] Payers Date Payer Category Payer Self-pay [id number] 2021 Medicare [id number] 2008 Medicare 2008 Unknown 2003 Unknown [id number] 1956 Unknown [id number] 2.16.8 [id number] 1956 Unknown [id number] 2.16.8 [id number] 1956 Unknown [id number] 2.16.8 [id number] 1956 Unknown [id number] 2.16.8 [id number] 1956 Unknown [id number] 2.16.8 [id number] 1956 Unknown [id number] 2.16.8 [id number] 1956 Unknown [id number] 2.16.8 [id number] 1956 Unknown [id number] 2.16.8 [id number] Unknown [id number] 2.16.8 [id number] Social History Date Type Detail Facility Tobacco smoking status MEIS Unknown if ever smoked [facility] Work Phone: Start: 1955 Sex Assigned At Female W [facility] Work Phone: Tobacco smoking status [facility] Tobacco smoking consumption unknown [facility] Start: 1955 Sex Assigned At Not on file [facility] Gender identity Not on file [facility] in History of Present illness Narrative 06-29-2024 Anika Florence RT(R) - 06/29/2024 9:40 AM EST Note Date & Type Note Facility 06-29-2024 History of Presen t illness Narrative Radiology Service Progress Note PATIENT NAME: Brianna Colunga DATE OF SERVICE: June 29, 2024 TIME: 9:43 AM PATIENT IDENTITY VERIFICATION COMPLETED USING TWO (2) IDENTIFIERS: Name and Date of confirmed by patient verbally. FALL SCREENING: Has the patient had 2 falls in the last year or 1 fall with injury or currently using an Ambulatory Assistive Device (Walker, Cane, Wheelchair, Crutches, etc.)? No PATIENT GENDER DATA: Assigned female at . status: : No status: NO. PATIENT RELEVANT IMPLANT DATA REVIEWED: Not Applicable PATIENT PRESENTS WITH AN IMPLANTABLE OR ATTACHED LBD TEACHER: No RADIOLOGY DEPARTMENT: Mammography PERIPHERAL IV DATA: Not applicable SIGNED BY: BRIDGETTE Arvizu)(M) June 29, 2024 9:43 AM documented in this encounter [facility] Progress note 06-29-2024 Note Date & Type Note Facility 06-29-2024 Note HNO ID: [id number] Author: ANIKA FLORENCE RT(R) Service: Radiology Author Type: Technologist Type: Progress Notes Filed: 06/29/2024 09:43 Note Text: Radiology Service Progress Note PATIENT NAME: Brianna Colunga DATE OF SERVICE: June 29, 2024 TIME: 9:43 AM PATIENT IDENTITY VERIFICATION COMPLETED USING TWO (2) IDENTIFIERS: Name and Date of confirmed by patient verbally. FALL SCREENING: Has the patient had 2 falls in the last year or 1 fall with injury or currently using an Ambulatory Assistive Device (Walker, Cane, Wheelchair, Crutches, etc.)? No PATIENT GENDER DATA: Assigned female at . status: : No status: NO. PATIENT RELEVANT IMPLANT DATA REVIEWED: Not Applicable PATIENT PRESENTS WITH AN IMPLANTABLE OR ATTACHED LBD TEACHER: No RADIOLOGY DEPARTMENT: Mammography PERIPHERAL IV DATA: Not applicable SIGNED BY: BRIDGETTE Arvizu)(M) June 29, 2024 9:43 AM [facility] History of Present illness Narrative 10-22-2022 MALLY Duncan - 10/22/2022 2:00 PM EDT Note Date & Type Note Facility 10-22-2022 History of Presen t illness Narrative Radiology Service Progress Note PATIENT NAME: Brianna Colunga DATE OF SERVICE: October 22, 2022 TIME: 1:05 PM PATIENT IDENTITY VERIFICATION COMPLETED USING TWO (2) IDENTIFIERS: Name and Date of confirmed by patient verbally. FALL SCREENING: Has the patient had 2 falls in the last year or 1 fall with injury or currently using an Ambulatory Assistive Device (Walker, Cane, Wheelchair, Crutches, etc.)? No PATIENT GENDER DATA: Female. status: : No status: NO. PATIENT RELEVANT IMPLANT DATA REVIEWED: Not Applicable RADIOLOGY DEPARTMENT: Mammography PERIPHERAL IV DATA: Not applicable SIGNED BY: MALLY Duncan October 22, 2022 1:05 PM documented in this encounter [facility] Evaluation note Note Date & Type Note Facility Evaluation note No assessment information availa [facility] Work Phone: Summary Purpose Family History No Family History Records FoundNo Family History Records FoundNo Family History Records FoundNo Family History Records FoundNo Family History Records Found Advance Directives No Advanced Directives Records FoundNo Advanced Directives Records FoundNo Advanced Directives Records FoundNo Advanced Directives Records FoundNo Advanced Directives Records Found Chief Complaint and Reason for Visit Chief Complaint EORDER VIT.D AND ADD T ORDER Additional Source Comments INFORMATION SOURCE (unrecogn ized section and content) DATE CREATED AUTHOR 07/21/2021 [facility] DATE CREATED AUTHOR AUTHOR'S ORGANIZ ATION 10/14/2022 [facility] DATE CREATED AUTHOR AUTHOR'S ORGANIZ ATION 02/25/2024 [facility] DATE CREATED AUTHOR AUTHOR'S ORGANIZ ATION 07/01/2024 [facility] DATE CREATED AUTHOR AUTHOR'S ORGANIZ ATION 07/02/2024 [facility] Goals (unrecognized section and content) Goals may be documented in a n alternate sectionGoals may be documented in an alternate sectionGoals may be documented in an alternate section Source Comments (unrecognize d section and content) In the event this informatio n is protected by the Federal Confidentiality of Alcohol and Drug Abuse Patient Records regulations: The Federal rules restrict any use of the information to criminally investigate or prosecute any alcohol or drug abuse patient.[facility] the event this information is protected by the Federal Confidentiality of Alcohol and Drug Abuse Patient Records regulations: The Federal rules restrict any use of the information to criminally investigate or prosecute any alcohol or drug abuse patient.[facility] Care Teams (unrecognized sec tion and content) Train Announcer Relationship Specialty Start Date End Date Claudine Davey PCP - General Family Medicine 05/21/15 Train Announcer Relationship Specialty Start Date End Date Claudine Davey PCP - General Family Medicine 05/21/15 FOR RECORDS PERTAINING TO PATIENTS WHO ARE OR HAVE BEEN ENROLLED IN A CHEMICAL DEPENDENCY/SUBSTANCEABUSE PROGRAM, SOME INFORMATION MAY BE OMITTED. This clinical summary was aggregated from multiple sources. Caution should be exercised in using it in the provision of clinical care. This summary normalizes information from multiple sources, and as a consequence, information in this document may materially change the coding, format and clinical context of patient data. In addition, data may be omitted in some cases. CLINICAL DECISIONS SHOULD BE BASED ON THE PRIMARY CLINICAL RECORDS. [facility] [facility]. provides no warranty or guarantee of the accuracy or completeness of information in this document.
== END | disposition home or self-care (01) ==
LOC: MTLAB 11:45
DX: Z00.00 Encounter for general adult medical examination without abnormal findings (principal); I10 Essential (primary) hypertension
CPT/HCPCS: 36415; 80053; 80061; 84443; 85025